=== PATIENT | female | born 1970 ===

== ENCOUNTER 2018-07-26 04:14 | Emergency (ER) | payer MEDICAID ==
[2018-07-26 04:30] VITALS: BP 150/76; PULSE 102; RESP 20; TEMP 98; O2SAT 100
[2018-07-26] MEDS ORDERED: Sodium Chloride 0.9% 1,000 ML IV STA (04:45)
[2018-07-26 05:14] LABS: BASO # 0.1 K/uL (0.0-0.2); BASO % 0.7 % (0.0-2.0); EOS # 0.4 K/uL (0.0-0.7); EOS % 4.3 % (0.0-4.0); HEMOGLOBIN 15.1 g/dL (12.0-16.0); LYMPH # 0.6 K/uL (1.0-4.3); LYMPH % 7.2 % (20.0-40.0); MEAN CELL VOLUME 90.8 fl (81.0-99.0); MEAN CORPUSCULAR HEMOGLOBIN 30.5 pg (27.0-31.0); MEAN CORPUSCULAR HGB CONC 33.5 g/dL (33.0-37.0); MEAN PLATELET VOLUME 7.9 fl (7.2-11.7); MONO # 0.5 K/uL (0.0-0.8); MONO % 6.2 % (0.0-10.0); NEUT % 81.6 % (50.0-75.0); PLATELET COUNT 260 K/uL (130-400); RBC 4.97 Mil/uL (3.80-5.20); RED CELL DISTRIBUTION WIDTH 13.2 % (11.5-14.5); WHITE BLOOD COUNT 8.6 K/uL (4.8-10.8)
[2018-07-26 05:20] LABS: SQUAMOUS EPITHIAL 3 /hpf (0-5); URINE BILIRUBIN NEGATIVE (NEGATIVE); URINE BLOOD NEGATIVE (NEGATIVE); URINE CLARITY SLIGHTY-CLOUDY (Clear); URINE COLOR AMBER (YELLOW); URINE GLUCOSE (UA) NEG (NEGATIVE); URINE LEUKOCYTE ESTERASE NEG Leu/uL (Negative); URINE PROTEIN 100 mg/dL (NEGATIVE)
--- NOTE | 2018-07-26 05:20 | ED PDOC ---
HPI: Abdomen Time Seen by Provider: 07/26/18 04:20 Chief Complaint (Nursing): Chest Pain Chief Complaint (Provider): Abdominal Pain History Per: Patient History/Exam Limitations: no limitations Onset/Duration Of Symptoms: Hrs (x 1) Current Symptoms Are (Timing): Still Present Quality Of Discomfort: "Pain" Associated Symptoms: Nausea, Vomiting, Chest Pain Additional Complaint(s): 47 year old female with a history of osteoporosis, obesity and asthma presents to the ED for evaluation of abdominal pain, chest pain and shortness of breath, onset 1 hour prior to arrival. Patient reports yesterday she went to her PMD for her asthma, was given a nebulizer treatment and flu shot in office and sent home. States that this evening she felt fine before she went to sleep. However, she woke up with epigastric pain radiating to her chest and vomited once. She also had the sensation that she may have diarrhea, but did not. Patient reports symptoms have resolved upon arrival at the ED. Offers no medical complaints at this time. PMD: Dr. Tomi Cisneros Past Medical History Reviewed: Historical Data, Nursing Documentation, Vital Signs Vital Signs: Last Vital Signs Temp 98.0 F 07/26/18 04:23 Pulse 102 H 07/26/18 04:23 Resp 20 07/26/18 04:23 BP 150/76 07/26/18 04:23 Pulse Ox 100 07/26/18 04:23 - Medical History PMH: Asthma, Osteoporosis - Surgical History Surgical History: Tonsillectomy - Family History Family History: States: Unknown Family Hx - Social History Current smoker - smoking cessation education provided: No - Home Medications Home Medications: Ambulatory Orders Medication Instructions Recorded Cetirizine Hydrochloride [Zyrtec] 10 mg PO DAILY #10 tab 07/29/14 Prednisone 10 mg PO TID #15 tab 07/29/14 Ibuprofen 600 mg PO Q6H PRN #15 tab 12/14/14 traMADol [Ultram] 50 mg PO Q6 PRN #15 tab 12/14/14 Albuterol 0.5% [Albuterol 0.5% 3 ml IH Q4H PRN #50 neb 03/22/15 Inhal Dipika (2.5 mg/0.5 ml) UD] Albuterol HFA [Ventolin HFA 90 2 puff IH Q4H PRN #1 inh 03/22/15 mcg/actuation (8 g)] predniSONE [predniSONE Tab] 10 mg PO TID #15 tab 01/27/16 Albuterol Sulfate [Proair Hfa] 0.09 mg IH Q6H PRN #2 inh 03/04/17 predniSONE [predniSONE Tab] 20 mg PO BID 5 Days tab 03/04/17 Esomeprazole Magnesium [Nexium] 20 mg PO QAM #14 ecc 07/26/18 Ondansetron ODT [Zofran ODT] 4 mg PO Q6 PRN #8 odt 07/26/18 - Allergies Allergies/Adverse Reactions: Allergies Allergy/AdvReac Type Severity Reaction Status Date / Time No Known Allergies Allergy Verified 03/22/15 16:38 Review of Systems ROS Statement: Except As Marked, All Systems Reviewed And Found Negative Constitutional: Negative for: Fever, Chills Cardiovascular: Positive for: Chest Pain Respiratory: Positive for: Shortness of Breath Gastrointestinal: Positive for: Abdominal Pain (radiating into chest) Physical Exam - Reviewed Nursing Documentation Reviewed: Yes Vital Signs Reviewed: Yes - Physical Exam Appears: Positive for: No Acute Distress Head Exam: Positive for: ATRAUMATIC, NORMAL INSPECTION, NORMOCEPHALIC Skin: Positive for: Normal Color, Warm, Dry Eye Exam: Positive for: EOMI, Normal appearance, PERRL Neck: Positive for: Normal, Painless ROM, Supple Cardiovascular/Chest: Positive for: Tachycardia (with regular rhythm). Negative for: Murmur Respiratory: Positive for: Normal Breath Sounds. Negative for: Respiratory Distress Gastrointestinal/Abdominal: Positive for: Normal Exam (obese abdomen), Soft. Negative for: Tenderness, Mass, Guarding, Rebound Back: Positive for: Normal Inspection. Negative for: L CVA Tenderness, R CVA Tenderness Extremity: Positive for: Normal ROM (x 4). Negative for: Deformity Neurological/Psych: Positive for: Awake, Alert, Normal Tone, Oriented. Negative for: Motor/Sensory Deficits - Laboratory Results Result Diagrams: 07/26/18 04:45 07/26/18 04:45 - ECG O2 Sat by Pulse Oximetry: 100 (RA) Pulse Ox Interpretation: Normal Medical Decision Making Medical Decision Makin:31 Impression: 47 year old female with acute gastritis Initial Plan: --EKG --CMP --CBC --Lipase --Urine preg --Urine dip --NS IV 1,000 mls --Pepcid 20 mg IVP --Zofran 4 mg IV --UA 06:20 Patient reports marked improvement in symptoms and is stable for discharge. Diagnosis is gastritis. Scribe Attestation: Documented by Sunitha Alvarado, acting as a scribe Gauri Mortensen MD Provider Scribe Attestation: All medical record entries made by the Scribe were at my direction and personally dictated by me. I have reviewed the chart and agree that the record accurately reflects my personal performance of the history, physical exam, medical decision making, and the department course for this patient. I have also personally directed, reviewed, and agree with the discharge instructions and disposition Disposition - Clinical Impression Clinical Impression: Gastritis - Patient ED Disposition Is Patient to be Admitted: No - Disposition Referrals: Carlyle Cisneros MD [Primary Care Provider] - Disposition: Routine/Home Disposition Time: 06:20 Condition: STABLE Prescriptions: Esomeprazole Magnesium [Nexium] 20 mg PO QAM #14 ecc Ondansetron ODT [Zofran ODT] 4 mg PO Q6 PRN #8 odt PRN Reason: Nausea/Vomiting Instructions: Gastritis Forms: [facility] ([place]ian)
[2018-07-26 05:23] LABS: ALB/GLOB RATIO 1.2 (1.0-2.1); ALBUMIN 4.1 g/dL (3.5-5.0); ALT/SGPT 51 U/L (9-52); AST/SGOT 103 U/L (14-36); BLOOD UREA NITROGEN 20 mg/dl (7-17); GFR NON-AFRICAN AMERICAN > 60; LIPASE 74 U/L (23-300)
[2018-07-26 05:37] LABS: BANDS 1 % (0-2); LYMPHOCYTE 9 % (20-50); MONOCYTE 8 % (0-10); NEUTROPHIL 82 % (42-75); PLATELET ESTIMATE NORMAL (NORMAL); TOTAL CELLS COUNTED 100
--- NOTE | 2018-07-26 08:17 | CARD ---
APPROVED REPORT Date of service: 07/26/2018 EKG Measurement Heart [id number] <Conclusion> Sinus rhythm with frequent premature atrial complexes Otherwise normal ECG
== END 2018-07-26 07:08 | disposition home or self-care (01) ==
LOC: H.ER 04:14
DX: K29.00 Acute gastritis without bleeding (principal); J45.909 Unspecified asthma, uncomplicated; M81.0 Age-related osteoporosis without current pathological fracture
CPT/HCPCS: 80053; 81003; 81025; 83690; 85025; 93005; 96360; 99283; J7030